=== PATIENT | male | born 1995 | race Caucasian/White ===

== ENCOUNTER 2016-10-01 12:43 | Emergency (ER) | payer MEDICAID ==
[~2016-10-01] VITALS: Ht 172.7 cm; Wt 65.8 kg
[2016-10-01 12:48] VITALS: BP 116/60
== END 2016-10-01 13:19 | disposition home or self-care (01) ==
LOC: ER 12:48
DX: H00.12 Chalazion right lower eyelid (principal)
CPT/HCPCS: 99283; A4606; Z7610

== ENCOUNTER 2017-02-28 15:28 | Emergency (ER) | payer MEDICAID ==
[~2017-02-28] VITALS: Ht 172.7 cm; Wt 64.9 kg
[2017-02-28 15:35] VITALS: BP 126/68
== END 2017-02-28 16:17 | disposition home or self-care (01) ==
LOC: ER 15:31
DX: H00.12 Chalazion right lower eyelid (principal)
CPT/HCPCS: A4606; Z7502; Z7610

== ENCOUNTER 2018-12-04 11:19 | Emergency (ER) | payer MEDICAID ==
[~2018-12-04] VITALS: Ht 172.7 cm; Wt 62.6 kg
[2018-12-04 11:26] VITALS: BP 121/79
== END 2018-12-04 12:00 | disposition home or self-care (01) ==
LOC: ER 11:21
DX: S61.201A Unspecified open wound of left index finger without damage to nail, initial encounter (principal); W22.8XXA Striking against or struck by other objects, initial encounter; Y93.89 Activity, other specified; Y92.89 Other specified places as the place of occurrence of the external cause; Y99.8 Other external cause status

== ENCOUNTER 2020-09-11 10:22 | Emergency (ER) | payer MEDICAID ==
[~2020-09-11] VITALS: Ht 172.7 cm; Wt 61.2 kg
[2020-09-11 10:31] VITALS: BP 103/65
[2020-09-11] MEDS ORDERED: CLOT15CR27 TP ×2 (10:43→10:44)
== END 2020-09-11 10:51 | disposition home or self-care (01) ==
LOC: ER 10:24
DX: B35.4 Tinea corporis (principal); L29.9 Pruritus, unspecified

== ENCOUNTER 2023-03-23 11:15 | Emergency (ER) | payer MEDICAID ==
[~2023-03-23] VITALS: Ht 172.7 cm; Wt 63.5 kg
[~2023-03-23 11:15] MED LIST: CLOT15CR27 TP
[2023-03-23 11:37] VITALS: BP 114/76; TEMP 98.1; O2SAT 97
[2023-03-23] MEDS ORDERED: CYCL5TAB PO (12:26)
[2023-03-23] MEDS ORDERED: IBUP-1955 PO (12:26)
[2023-03-23] MEDS ORDERED: METH4TAB17 PO (12:26)
[2023-03-23] MEDS ORDERED: LIDO30AD10 TP (12:26)
[2023-03-23] MEDS ORDERED: KETOROLAC TROMETHAMINE 15 MG/ML VIAL ONE (12:28)
[2023-03-23] MEDS: KETOROLAC TROMETHAMINE 15 MG/ML VIAL IM ONE (12:30)
== END 2023-03-23 12:37 | disposition home or self-care (01) ==
LOC: ER 11:27
DX: M54.41 Lumbago with sciatica, right side (principal)
CPT/HCPCS: 99283; 96372; J1885